=== PATIENT | female | born 1960 | race Caucasian/White ===

== ENCOUNTER → 2017-08-03 | Outpatient (CLI) | payer OTHER ==
[~2017-08-03] MED LIST: ANTIVERT25 MG PO; BACTRIM DS 8001 TA1 PO; BIAXIN500 MG PO; CLARITIN10 MG PO; FLEXERIL10 MG PO; IBU800 M1 PO; VICODIN 5/500 505 MG PO
== END | disposition home or self-care (01) ==
LOC: RAD 07:54
DX: J40 Bronchitis, not specified as acute or chronic (principal); J44.9 Chronic obstructive pulmonary disease, unspecified

== ENCOUNTER → 2018-03-10 | Outpatient (CLI) | payer OTHER ==
[~2018-03-10] MED LIST changes: +LEVAQUIN750 M1 PO; +MUCINEX ER600 MG PO; +PREDNISONE10 MG PO; +SIMVASTATIN20 MG PO
== END | disposition home or self-care (01) ==
LOC: RAD 16:50
DX: J44.9 Chronic obstructive pulmonary disease, unspecified (principal)

== ENCOUNTER 2018-03-28 05:45 | Inpatient (IN) | payer OTHER ==
[2018-03-28] VITALS (7 sets, daily range): BP systolic 126–186; BP diastolic 59–106
[~2018-03-28] VITALS: Ht 157.4 cm; Wt 117.3 kg
--- NOTE | ~2018-03-28 | EKG ---
[place], [place] ELECTROCARDIOGRAM REPORT NAME: JEANNETTE MORRISON UNIT #: [id number] ROOM: 406 DOCTOR: RICHARD DRAFT REPORT BIRTHDATE: [birth year] [facility] Test Date: 2018-03-28 Test Time: 05:57:37 Pat Name: JEANNETTE MORRISON Department: Room: 406 Gender: F [employer] Supervisor: : 1960 Requested By: JASPER BUSTOS Order Number: [id number] Reading MD: Tremaine Burleson MD Measurements Intervals [place] Rate: 97 P: 72 CT: 158 QRS: 40 QRSD: 105 T: 34 QT: 360 QTc: 458 Interpretive Statements Sinus rhythm No previous ECG available for comparison Electronically Signed On 03-28-2018 11:11:11 PST by Tremaine Burleson MD CM:EKGRPT:ELECTROCARDIOGRAM REPORT [id number] JASPER COY DRAFT REPORT JASPER BUSTOS DO
[~2018-03-28 05:45] MED LIST changes: -LEVAQUIN750 M1 PO; -MUCINEX ER600 MG PO; -PREDNISONE10 MG PO; -SIMVASTATIN20 MG PO
[2018-03-28 06:15] LABS: BASO # 0.1 10*3/uL (0.0-0.1); BASO % 0.5 % (0.0-1.0); EOS % 0.3 % (1.0-4.0); HEMATOCRIT 43.9 % (37.0-47.0); HEMOGLOBIN 14.5 g/dl (12.0-16.0); LYMPH # 1.7 10*3/uL (1.3-4.4); MEAN CELL VOLUME 85.6 fl (81.0-99.0); MEAN CORPUSCULAR HGB 28.3 pg (27.0-31.0); MEAN PLATELET VOLUME 9.2 fl (9.6-12.3); MONO # 0.8 10*3/uL (0.1-1.0); MONO % 6.4 % (3.0-9.0); NEUT # 10.4 10*3/uL (2.3-7.9); NEUT % 78.5 % (47.0-73.0); PLATELET COUNT AUTOMATED 335 10*3/uL (130-400); RED BLOOD COUNT 5.13 10*6/uL (4.10-5.10); RED CELL DISTRI WIDTH 12.8 % (0-14.5); WHITE BLOOD COUNT 13.2 10*3/uL (4.8-10.8)
[2018-03-28 06:33] LABS: ALBUMIN 3.5 gm/dl (3.1-4.5); ALKALINE PHOSPHATASE 127 U/L (45-117); BUN 14 mg/dl (7-24); CHLORIDE 104 mmol/L (98-107); CREATININE 0.91 mg/dL (0.55-1.02); SGOT/AST 12 IU/L (3-35); SGPT/ALT 29 U/L (12-78); SODIUM 135 mmol/L (136-145); TOTAL PROTEIN 8.1 gm/dL (6.4-8.2)
[2018-03-28 06:40] LABS: TROPONIN I < 0.015 ng/ml (<0.045)
[2018-03-28] MEDS ORDERED: SIMVASTATIN20 MG PO (08:35)
[2018-03-29] VITALS: BP 150/92
[2018-03-29 06:35] LABS: BASO % 0.2 % (0.0-1.0); EOS % 0.2 % (1.0-4.0); HEMATOCRIT 41.8 % (37.0-47.0); HEMOGLOBIN 13.8 g/dl (12.0-16.0); LYMPH # 1.2 10*3/uL (1.3-4.4); LYMPH % 9.2 % (27.0-41.0); MEAN CELL VOLUME 86.5 fl (81.0-99.0); MEAN CORPUSCULAR HGB 28.6 pg (27.0-31.0); MEAN PLATELET VOLUME 9.1 fl (9.6-12.3); MONO # 0.3 10*3/uL (0.1-1.0); MONO % 2.3 % (3.0-9.0); NEUT # 11.1 10*3/uL (2.3-7.9); NEUT % 86.4 % (47.0-73.0); PLATELET COUNT AUTOMATED 327 10*3/uL (130-400); RED BLOOD COUNT 4.83 10*6/uL (4.10-5.10); RED CELL DISTRI WIDTH 13.1 % (0-14.5); WHITE BLOOD COUNT 12.8 10*3/uL (4.8-10.8)
[2018-03-29 06:53] LABS: BUN 17 mg/dl (7-24); CHLORIDE 107 mmol/L (98-107); CHOLESTEROL 241 mg/dL (<200); CREATININE 0.88 mg/dL (0.55-1.02); PHOSPHOROUS 3.3 mg/dL (2.5-4.9); POTASSIUM 4.7 mmol/L (3.5-5.1); SODIUM 137 mmol/L (136-145); TRIGLYCERIDES 123 mg/dl (<150); VLDL CHOLESTEROL 25 mg/dL (6-40)
[2018-03-29 07:01] LABS: HDL CHOLESTEROL 45 mg/dl (40-60); LDL CHOLESTEROL 171 mg/dL (9-159); THYROID STIM HORMONE (HS) 0.948 uIU/ml (0.358-4.75)
[2018-03-29 08:16] LABS: VITAMIN D, 25-HYDROXY 26.3 ng/mL (30-100)
[2018-03-29 12:00] VITALS: BP 144/77
[2018-03-29 16:00] VITALS: BP 131/75
[2018-03-29 20:00] VITALS: BP 158/97
[2018-03-30] VITALS: BP 143/75
[2018-03-30 06:41] LABS: HEMATOCRIT 41.2 % (37.0-47.0); HEMOGLOBIN 13.3 g/dl (12.0-16.0); MEAN CELL VOLUME 87.7 fl (81.0-99.0); MEAN CORPUSCULAR HGB 28.3 pg (27.0-31.0); MEAN CORPUSCULAR HGB CONC 32.3 g/dl (33.0-37.0); MEAN PLATELET VOLUME 9.5 fl (9.6-12.3); PLATELET COUNT AUTOMATED 334 10*3/uL (130-400); RED CELL DISTRI WIDTH 13.2 % (0-14.5); WHITE BLOOD COUNT 16.8 10*3/uL (4.8-10.8)
[2018-03-30 07:09] LABS: ALBUMIN 3.3 gm/dl (3.1-4.5); ALKALINE PHOSPHATASE 106 U/L (45-117); BUN 22 mg/dl (7-24); CHLORIDE 107 mmol/L (98-107); CREATININE 0.85 mg/dL (0.55-1.02); POTASSIUM 4.6 mmol/L (3.5-5.1); SGOT/AST 13 IU/L (3-35); SGPT/ALT 29 U/L (12-78); SODIUM 137 mmol/L (136-145); TOTAL PROTEIN 7.2 gm/dL (6.4-8.2)
[2018-03-30 07:33] LABS: PLATELET SUFFICIENCY NORMAL (NORMAL); TOTAL CELLS COUNTED 100 #CELLS
[2018-03-30 08:00] VITALS: BP 156/85
[2018-03-30 12:00] VITALS: BP 149/86
[2018-03-30 16:00] VITALS: BP 145/82
[2018-03-30 20:00] VITALS: BP 158/79
[2018-03-31] VITALS: BP 155/90
[2018-03-31 06:45] LABS: HEMATOCRIT 42.2 % (37.0-47.0); HEMOGLOBIN 13.8 g/dl (12.0-16.0); MEAN CORPUSCULAR HGB 28.5 pg (27.0-31.0); MEAN CORPUSCULAR HGB CONC 32.7 g/dl (33.0-37.0); MEAN PLATELET VOLUME 9.3 fl (9.6-12.3); PLATELET COUNT AUTOMATED 345 10*3/uL (130-400); RED BLOOD COUNT 4.85 10*6/uL (4.10-5.10); RED CELL DISTRI WIDTH 13.4 % (0-14.5); WHITE BLOOD COUNT 16.3 10*3/uL (4.8-10.8)
[2018-03-31 07:13] LABS: PLATELET SUFFICIENCY NORMAL (NORMAL); TOTAL CELLS COUNTED 100 #CELLS
[2018-03-31 07:19] LABS: BUN 23 mg/dl (7-24); CHLORIDE 106 mmol/L (98-107); CREATININE 0.86 mg/dL (0.55-1.02); POTASSIUM 4.3 mmol/L (3.5-5.1); SODIUM 138 mmol/L (136-145)
[2018-03-31 08:00] VITALS: BP 154/88
[2018-03-31] MEDS ORDERED: LEVAQUIN750 M1 PO (10:59)
[2018-03-31] MEDS ORDERED: PREDNISONE10 MG PO (10:59)
[2018-03-31] MEDS ORDERED: MUCINEX ER600 MG PO (10:59)
== END 2018-03-31 14:18 | disposition home or self-care (01) | DRG 871 ==
LOC: ED 05:45 → EDHOLD 07:01 → 4E 07:01 → EDHOLD 07:02 → 4E 07:41
PROVIDERS: Emergency Medicine; Podiatrist Primary Podiatric Medicine; Student in an Organized Health Care Education/Training Program
DX: A41.9 Sepsis, unspecified organism (principal); J18.1 Lobar pneumonia, unspecified organism; E87.1 Hypo-osmolality and hyponatremia; J44.0 Chronic obstructive pulmonary disease with (acute) lower respiratory infection; J44.1 Chronic obstructive pulmonary disease with (acute) exacerbation; R73.9 Hyperglycemia, unspecified; E78.5 Hyperlipidemia, unspecified; R74.8 Abnormal levels of other serum enzymes; F17.210 Nicotine dependence, cigarettes, uncomplicated; Z88.0 Allergy status to penicillin; Z88.1 Allergy status to other antibiotic agents; Z98.51 Tubal ligation status; Z80.8 Family history of malignant neoplasm of other organs or systems; Z79.899 Other long term (current) drug therapy

== ENCOUNTER → 2018-04-06 | Outpatient (CLI) | payer OTHER ==
[~2018-04-06] MED LIST changes: +LEVAQUIN750 M1 PO; +MUCINEX ER600 MG PO; +PREDNISONE10 MG PO; +SIMVASTATIN20 MG PO
== END | disposition home or self-care (01) ==
LOC: MAMMO 07:14
DX: Z12.31 Encounter for screening mammogram for malignant neoplasm of breast (principal)

== ENCOUNTER → 2018-04-11 | Outpatient (CLI) | payer OTHER | END | disposition home or self-care (01) | LOC: RAD 17:27 | DX: J18.9 Pneumonia, unspecified organism (principal); R05 Cough ==

== ENCOUNTER → 2020-09-17 | Outpatient (CLI) | payer OTHER | END | disposition home or self-care (01) | LOC: RAD 14:04 | PROVIDERS: ATTEND Nurse Practitioner Primary Care | DX: J98.11 Atelectasis (principal) ==

== ENCOUNTER → 2021-03-18 | Outpatient (CLI) | payer OTHER ==
[~2021-03-18] MED LIST changes: +ADVAIR 250/501 EA INH; +ALBUTEROL4 MG PO; +VITAMIN D31250 MC1 PO
== END | disposition home or self-care (01) ==
LOC: RAD 11:06
PROVIDERS: ATTEND Nurse Practitioner Primary Care
DX: U07.1 COVID-19 (principal); J40 Bronchitis, not specified as acute or chronic

== ENCOUNTER 2022-08-23 16:52 | Emergency (ER) | payer BC ==
[~2022-08-23] VITALS: Ht 157.4 cm; Wt 95.3 kg
[2022-08-23 17:43] LABS: BASO # 0.1 10*3/uL (0.0-0.1); BASO % 0.7 % (0.0-1.0); EOS # 0.3 10*3/uL (0.0-0.4); EOS % 3.1 % (1.0-4.0); HEMATOCRIT 45.8 % (37.0-47.0); LYMPH # 1.1 10*3/uL (1.3-4.4); LYMPH % 12.3 % (27.0-41.0); MEAN CELL VOLUME 90.2 fl (81.0-99.0); MEAN CORPUSCULAR HGB 29.1 pg (27.0-31.0); MEAN CORPUSCULAR HGB CONC 32.3 g/dl (33.0-37.0); MEAN PLATELET VOLUME 8.9 fl (9.6-12.3); MONO # 0.3 10*3/uL (0.1-1.0); MONO % 2.9 % (3.0-9.0); NEUT # 7.2 10*3/uL (2.3-7.9); NEUT % 79.7 % (47.0-73.0); PLATELET COUNT AUTOMATED 282 10*3/uL (130-400); RED BLOOD COUNT 5.08 10*6/uL (4.10-5.10); RED CELL DISTRI WIDTH 12.7 % (0-14.5)
[2022-08-23 17:59] LABS: ALKALINE PHOSPHATASE 109 U/L (46-116); BUN 11 mg/dl (9-23); CHLORIDE 105 mmol/L (98-107); POTASSIUM 4.5 mmol/L (3.4-5.1); SGPT/ALT 18 U/L (10-49); TOTAL PROTEIN 7.5 gm/dL (6.0-8.0)
[2022-08-23] MEDS ORDERED: PREDNISONE50 MG PO (19:08)
[2022-08-23] MEDS ORDERED: ALLEGRA ALLERG180 M2 PO (19:08)
== END 2022-08-23 19:29 | disposition home or self-care (01) ==
LOC: ED 16:52
PROVIDERS: Nurse Practitioner Family
DX: J44.1 Chronic obstructive pulmonary disease with (acute) exacerbation (principal); Z88.0 Allergy status to penicillin; Z88.1 Allergy status to other antibiotic agents; Z88.8 Allergy status to other drugs, medicaments and biological substances; Z98.51 Tubal ligation status; Z87.891 Personal history of nicotine dependence; Z20.822 Contact with and (suspected) exposure to COVID-19

== ENCOUNTER 2022-12-20 16:45 | Emergency (ER) | payer BC ==
[~2022-12-20] VITALS: Wt 108.9 kg
[~2022-12-20 16:45] MED LIST changes: +ALLEGRA ALLERG180 M2 PO; +PREDNISONE50 MG PO
[2022-12-20 17:46] LABS: BASO # 0.1 10*3/uL (0.0-0.1); BASO % 0.8 % (0.0-1.0); EOS # 0.1 10*3/uL (0.0-0.4); EOS % 0.6 % (1.0-4.0); HEMATOCRIT 45.1 % (37.0-47.0); LYMPH # 1.7 10*3/uL (1.3-4.4); LYMPH % 17.6 % (27.0-41.0); MEAN CELL VOLUME 88.1 fl (81.0-99.0); MEAN CORPUSCULAR HGB 29.7 pg (27.0-31.0); MEAN CORPUSCULAR HGB CONC 33.7 g/dl (33.0-37.0); MEAN PLATELET VOLUME 8.7 fl (9.6-12.3); MONO # 0.7 10*3/uL (0.1-1.0); MONO % 6.8 % (3.0-9.0); NEUT # 7.2 10*3/uL (2.3-7.9); NEUT % 72.8 % (47.0-73.0); PLATELET COUNT AUTOMATED 311 10*3/uL (130-400); RED BLOOD COUNT 5.12 10*6/uL (4.10-5.10); RED CELL DISTRI WIDTH 12.4 % (0-14.5); WHITE BLOOD COUNT 9.9 10*3/uL (4.8-10.8)
[2022-12-20 17:58] LABS: ACT PARTIAL THROMBO TIME 28.3 SECONDS (20.0-32.1)
[2022-12-20 18:08] LABS: ALKALINE PHOSPHATASE 90 U/L (46-116); BUN 15 mg/dl (9-23); CHLORIDE 107 mmol/L (98-107); LIPASE 24 U/L (12-53); POTASSIUM 4.5 mmol/L (3.4-5.1); SGPT/ALT 13 U/L (10-49); TOTAL PROTEIN 7.3 gm/dL (6.0-8.0)
== END 2022-12-20 20:38 | disposition left against medical advice (07) ==
LOC: ED 16:45
PROVIDERS: Emergency Medicine
DX: M25.512 Pain in left shoulder (principal); R20.0 Anesthesia of skin; R68.84 Jaw pain; R51.9 Headache, unspecified; R00.2 Palpitations; R06.02 Shortness of breath; J44.9 Chronic obstructive pulmonary disease, unspecified; F17.200 Nicotine dependence, unspecified, uncomplicated; Z88.1 Allergy status to other antibiotic agents; Z88.0 Allergy status to penicillin; Z79.899 Other long term (current) drug therapy; Z98.51 Tubal ligation status

== ENCOUNTER → 2022-12-23 | Outpatient (CLI) | payer BC | END | disposition home or self-care (01) | LOC: CT 12-07 01:40 | PROVIDERS: ATTEND Physician Assistant | DX: J44.9 Chronic obstructive pulmonary disease, unspecified (principal); F17.200 Nicotine dependence, unspecified, uncomplicated; R91.1 Solitary pulmonary nodule ==

== ENCOUNTER → 2023-05-10 | Outpatient (CLI) | payer OTHER | END | disposition home or self-care (01) | LOC: RAD 01:12 | PROVIDERS: ATTEND Physician Assistant | DX: J20.9 Acute bronchitis, unspecified (principal); R05.9 Cough, unspecified; R06.02 Shortness of breath; F17.210 Nicotine dependence, cigarettes, uncomplicated ==

== ENCOUNTER → 2023-11-26 | Outpatient (CLI) | payer OTHER ==
[~2023-11-26] MED LIST changes: +IOHEXOL 300 MG/ML 100 ML VIAL IV ONE; +IOHEXOL 300 MG/ML 100 ML VIAL ONE
== END | disposition home or self-care (01) ==
LOC: CT 02:04
PROVIDERS: ATTEND Physician Assistant
DX: J44.9 Chronic obstructive pulmonary disease, unspecified (principal); R91.8 Other nonspecific abnormal finding of lung field; F17.200 Nicotine dependence, unspecified, uncomplicated

== ENCOUNTER → 2025-02-12 | Outpatient (CLI) | payer BC ==
[~2025-02-12] MED LIST changes: +Albuterol INH; +CIPRO500 MG PO; +HYDROCODONE-AC1 EAC1 PO; -IOHEXOL 300 MG/ML 100 ML VIAL ONE; +LEVOFLOXACIN750 M2 PO; +METRONIDAZOLE500 M1 PO; +MUCUS RELIEF E600 MG PO; +ONDANSETRON HYDR4 MG PO; +PREDNISONE20 M1 PO; +ROSUVASTATIN CA20 MG PO; +SEPTDS PO
== END | disposition home or self-care (01) ==
LOC: CT 02:13
PROVIDERS: ATTEND Physician Assistant
DX: K57.30 Diverticulosis of large intestine without perforation or abscess without bleeding (principal); D25.9 Leiomyoma of uterus, unspecified; R19.8 Other specified symptoms and signs involving the digestive system and abdomen; R10.9 Unspecified abdominal pain; M47.816 Spondylosis without myelopathy or radiculopathy, lumbar region; R19.7 Diarrhea, unspecified; M25.78 Osteophyte, vertebrae